=== PATIENT | female | born 1985 | race Caucasian/White ===

== ENCOUNTER → 2020-08-17 | Outpatient (CLI) | payer BC ==
--- NOTE | 2020-08-17 11:39 | MM ---
Reason for exam: screening (asymptomatic). Baseline mammogram. History: Patient is nulliparous. Physical Findings: Nurse did not find any significant physical abnormalities on exam. MG 3D Screening Mammo W/Cad Bilateral CC and MLO view(s) were taken. The breast tissue is heterogeneously dense. This may lower the sensitivity of mammography. Finding: There is a 20 mm circumscribed round mass in the left breast, questionable distortion outer aspect. These results were verbally communicated with the patient and result sheet given to the patient on 08/17/20. ASSESSMENT: Incomplete: need additional imaging evaluation, BI-RAD 0 RECOMMENDATION: Ultrasound of the left breast.
--- NOTE | 2020-08-17 11:40 | USB ---
Reason for exam: additional evaluation requested from abnormal screening. History: Patient is nulliparous. Physical Findings: Breast exam preformed at baseline screening. US Breast Workup LT Left complete breast ultrasound includes all four quadrants, the retroareolar region and axilla. Finding demonstrates a 1.2 x 1.1 x 0.5cm round, cystic lesion at 1 o'clock, a 1.9 x 1.7 x 0.9cm round, cystic lesion at 3 o'clock and a 2.5 x 2.0 x 1.0cm oval, cystic lesion at 11 o'clock. Extensive fibrocystic change. These results were verbally communicated with the patient and result sheet given to the patient on 08/17/20. ASSESSMENT: Benign, BI-RAD 2 RECOMMENDATION: Routine screening mammogram of both breasts at age 38.
== END | disposition home or self-care (01) ==
LOC: RADMAMWWP 10:02
PROVIDERS: ATTEND Obstetrics & Gynecology
DX: R92.8 Other abnormal and inconclusive findings on diagnostic imaging of breast (principal)
CPT/HCPCS: 77063; 77067

== ENCOUNTER → 2023-08-25 | Outpatient (CLI) | payer BC ==
--- NOTE | 2023-08-26 23:33 | MM ---
Reason for Exam: Screening (asymptomatic). Last mammogram was performed 3 year(s) and 1 month(s) ago. Patient History: Menarche at age 10. Patient has no children. Premenopausal. Maternal grandmother had breast cancer at or over age 50. Paternal grandmother had ovarian cancer at or over age 50. Last menstrual period: 08/12/2023 Risk Values: Aylin 5 year model risk: 0.6%. NCI Lifetime model risk: 11.1%. Prior Study Comparison: 08/17/2020 Bilateral Screening Mammogram, [facility]. Tissue Density: The breast tissue is heterogeneously dense. This may lower the sensitivity of mammography. Findings: Analyzed By CAD. On 3-D images, possible underlying distortion in the lateral left breast middle depth on CC and also medially in the left breast at anterior depth cc view. Additional evaluation is recommended. Underlying chronic nodularity on the left. Otherwise, no significant change. Overall Assessment: Incomplete: need additional imaging evaluation, BI-RAD 0 Management: Special View Mammogram of the left breast. Diagnostic Breast Ultrasound of the left breast. Additional views to include spot 3-D CC (2 sites), 3-D CC rolled, and 3-D lateral views. Whole left breast ultrasound given breast complexity and possible underlying distortion. [facility] will attempt to contact patient to return for supplemental views and ultrasound if indicated. Electronically signed and approved by: Dony Leal M.D. Radiologist
== END | disposition home or self-care (01) ==
LOC: RADMAMWWP 13:57
PROVIDERS: ATTEND Family Medicine
DX: Z12.31 Encounter for screening mammogram for malignant neoplasm of breast (principal); Z80.3 Family history of malignant neoplasm of breast
CPT/HCPCS: 77063; 77067

== ENCOUNTER → 2023-09-04 | Outpatient (CLI) | payer BC ==
--- NOTE | 2023-09-04 14:08 | MM ---
Reason for Exam: Additional evaluation requested from abnormal screening. Last screening mammogram was performed less than 1 month ago. Patient History: Menarche at age 10. Patient has no children. Premenopausal. Maternal grandmother had breast cancer at or over age 50. Paternal grandmother had ovarian cancer at or over age 50. Risk Values: Aylin 5 year model risk: 0.6%. NCI Lifetime model risk: 11.1%. Prior Study Comparison: 08/17/2020 Bilateral Screening Mammogram, [facility]. 08/25/2023 Bilateral MG 3D screening mammo w/cad, [facility]. Tissue Density: Left: The breast tissue is extremely dense which could obscure a lesion on mammography. Findings: Analyzed By CAD. Left breast: There is some architectural distortion on CC view spot compression slice 39 of 97 the lateral aspect. This is approximately middle depth 10.3 cm from the nipple. Cystic lesion seen on prior appears similar.. Right breast: No new suspicious masses, calcifications or distortions. Overall Assessment: Incomplete: need additional imaging evaluation, BI-RAD 0 Management: Diagnostic Breast Ultrasound of the left breast. Results were given to the patient verbally at the time of exam. Patient should continue monthly self-breast exams. A clinical breast exam by your physician is recommended on an annual basis. This exam should not preclude additional follow-up of suspicious palpable abnormalities. Note on Aylin scores and lifetime risk: 1. A Aylin score greater than 3% is considered moderate risk. If this is the case, consider specialist referral to assess eligibility for a risk reducing agent. 2. If overall lifetime risk for the development of breast cancer is 20% or higher, the patient may qualify for future screening with alternating mammogram and breast MRI. Electronically signed and approved by: Arturo Heard DO
--- NOTE | 2023-09-04 14:31 | USB ---
Reason for Exam: Additional evaluation requested from abnormal screening. Patient History: Menarche at age 10. Patient has no children. Premenopausal. Maternal grandmother had breast cancer at or over age 50. Paternal grandmother had ovarian cancer at or over age 50. Risk Values: Aylin 5 year model risk: 0.6%. NCI Lifetime model risk: 11.1%. Technique: Method: Targeted. Prior Study Comparison: 08/17/2020 Bilateral Screening Mammogram, [facility]. 08/25/2023 Bilateral MG 3D screening mammo w/cad, [facility]. Findings: The upper outer quadrant of the left breast, the axilla of the left breast and the retroareolar of the left breast were scanned. Technique utilized:US breast workup limited LT Image; Ultrasound imaging of: Area of concern, retroareolar region and axilla. Cyst with posterior acoustic enhancement measuring up to 16 mm. No definitive mass. Area felt to represent fibroglandular tissue on mammography. Overall Assessment: Benign, BI-RAD 2 Management: Screening Mammogram of both breasts in 1 year. A clinical breast exam by your physician is recommended on an annual basis and results should be correlated with mammographic findings. This exam should not preclude additional follow-up of suspicious palpable abnormalities. Results were given to the patient verbally at the time of exam. Electronically signed and approved by: Arturo Heard DO
== END | disposition home or self-care (01) ==
LOC: RADMAMWWP 13:37
PROVIDERS: ATTEND Family Medicine
DX: R92.342 Mammographic extreme density, left breast (principal); Z80.3 Family history of malignant neoplasm of breast
CPT/HCPCS: 77061; 77065

== ENCOUNTER → 2024-10-28 | Outpatient (CLI) | payer BC ==
--- NOTE | 2024-10-28 13:19 | MM ---
Reason for Exam: Screening (asymptomatic). Last mammogram was performed 1 year(s) and 2 month(s) ago. Patient History: Menarche at age 10. Patient has no children. Premenopausal. Maternal grandmother had breast cancer at or over age 50. Paternal grandmother had ovarian cancer at or over age 50. Last menstrual period: 10/28/2024 Risk Values: Aylin 5 year model risk: 0.7%. NCI Lifetime model risk: 11.0%. Prior Study Comparison: 08/17/2020 Bilateral Screening Mammogram, [facility]. 08/25/2023 Bilateral MG 3D screening mammo w/cad, [facility]. 09/04/2023 Left MG 3D work up w/cad , [facility]. Tissue Density: The breasts are extremely dense, which lowers the sensitivity of mammography. Findings: Analyzed By CAD. Right breast: There is no suspicious group of microcalcifications or new suspicious mass. Left breast: There is no suspicious group of microcalcifications or new suspicious mass. Overall Assessment: Negative, BI-RAD 1 Management: Screening Mammogram of both breasts in [address] [facility] will attempt to contact patient to return for supplemental views and ultrasound if indicated. Patient should continue monthly self-breast exams. A clinical breast exam by your physician is recommended on an annual basis. This exam should not preclude additional follow-up of suspicious palpable abnormalities. Note on Aylin scores and lifetime risk: 1. A Aylin score greater than 3% is considered moderate risk. If this is the case, consider specialist referral to assess eligibility for a risk reducing agent. 2. If overall lifetime risk for the development of breast cancer is 20% or higher, the patient may qualify for future screening with alternating mammogram and breast MRI. [facility], , 10/28/2024 1:16 PM. Electronically signed and approved by: Arturo Heard DO
== END | disposition home or self-care (01) ==
LOC: RADMAMWWP 12:50
PROVIDERS: ATTEND Family Medicine
DX: Z12.31 Encounter for screening mammogram for malignant neoplasm of breast (principal); R92.343 Mammographic extreme density, bilateral breasts; Z80.3 Family history of malignant neoplasm of breast
CPT/HCPCS: 77063; 77067